=== PATIENT | female | born 1975 | race Caucasian/White ===

== ENCOUNTER 2016-11-01 13:09 | Emergency (ER) | payer OTHER ==
[~2016-11-01] VITALS: Ht 170.2 cm; Wt 68.0 kg
[~2016-11-01 13:09] MED LIST: ATIVAN0.5 MG PO; ATIVAN1 MG PO; BENTYL20 MG PO; CARAFATE1 GM PO; CYCLOBENZAPRINE10 M1 PO; LAMOTRIGINE100 M2 PO; LASIX20 M1 PO; LEVSIN0.125 M1 PO; MEDROL4 M2 PO; MINIPRESS5 MG PO; OMEPRAZOLE40 MG PO; OXYCODONE HCL5 M1 PO; PEN-VK500 MG PO; PEPCID20 MG PO; PERCOCET 10-321 EACH PO; PERCOCET 5-3251 EACH PO; PROTONIX40 M3 PO; REMERON 15MG TA15 MG PO; REMERON30 M3 PO; SOMA 350MG TAB350 MG PO; SOMA350 M1 PO; TRAMADOL HCL50 M1 PO; TRAMADOL50 MG PO; TYLENOL TAB 32325 MG PO; VICODIN 300 MG-1 TAB PO; XANAX1 MG PO; XANAX2 MG PO; ZANTAC 150MG150 MG PO
[2016-11-01 13:16] VITALS: BP 142/96
--- NOTE | 2016-11-01 13:56 | ED NECK/BACK PAIN COMPLAINT ---
History of Present Illness General Chief Complaint: Low Back Pain/Injury Stated Complaint: LOW BACK PAIN /CP Source: patient, family Exam Limitations: no limitations Vital Signs & Intake/Output Vital Signs & Intake/Output Vital Signs Date Time Temp Pulse Resp B/P B/P Pulse O2 O2 Flow FiO2 Mean Ox Delivery Rate 11/01 1316 98.4 85 20 142/96 98 Room Air Allergies Coded Allergies: ibuprofen (GI UPSET 03/03/16) meloxicam (GI UPSET 03/03/16) Reconcile Medications Alprazolam (Xanax) 2 MG TABLET 1 TAB PO TID ANXIETY (Reported) Cyclobenzaprine HCl 10 MG TABLET 1 TAB PO Q8P PAIN OR SPASM Lamotrigine 100 MG TABLET 1 TAB PO DAILY MENTAL HEALTH (Reported) Mirtazapine (Remeron) 30 MG TABLET 1 TAB PO QPM MENTAL HEALTH (Reported) Oxycodone HCl/Acetaminophen (Percocet 5-325 MG Tablet) 5 MG-325 MG TABLET 1-2 TAB PO Q6P PRN PAIN Triage Note: PT TO ED C/O LEFT SIDED C/P PAIN RADIATING TO LEFT ARM X 1 WEEK. ALSO C/O EXERBATION OF CHRONIC BACK PAIN. NO SOB OR DIFF BREATHING NOTED. EKG DONE. Triage Nurses Notes Reviewed? yes : No Patient currently breastfeeds: No HPI: Patient states that she has chronic low back pain but over the past 3 weeks it has worsened. Patient states the pain is in bilateral lower back. Patient states the pain radiates to her right posterior thigh and down to behind her left knee. Pain is constant. The pain increases with movement. The pain is aching in nature. There is no weakness or numbness. There is no incontinence of bowel or bladder. Past History Travel History Traveled to [place] past 21 day No Medical History Any Pertinent Medical History? 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 No Review of Systems Review of Systems Constitutional: Reports: no symptoms. Eyes: Reports: no symptoms. Ears, Nose, Throat, Mouth: Reports: no symptoms. Respiratory: Reports: no symptoms. Cardiovascular: Reports: no symptoms. Gastrointestinal/Abdominal: Reports: no symptoms. Musculoskeletal: Reports: see HPI, back pain. Skin: Reports: no symptoms. Neurological/Psychological: Reports: no symptoms. All Other Systems: Reviewed and Negative Physical Exam Physical Exam General Appearance: well developed/nourished, alert, awake, moderate distress Head: atraumatic, normal appearance Eyes: Bilateral: PERRL, EOMI. Ears, Nose, Throat, Mouth: hearing grossly normal, moist mucous membrane Neck: normal inspection, supple, full range of motion Respiratory: normal breath sounds, chest non-tender, no respiratory distress, lungs clear Cardiovascular: regular rate/rhythm, normal peripheral pulses Gastrointestinal: normal bowel sounds, soft, non-tender, no organomegaly Back: normal inspection, muscle spasm, no vertebral tenderness Extremities: normal range of motion Straight Leg Raising: Right: Negative. Left: Negative. Neurologic/Psych: no motor/sensory deficits, awake, alert, oriented x 3, normal gait Skin: intact, normal color, warm/dry Progress Differential Diagnosis: herniated disc, myofascial strain, sciatica, T/L spine injury Plan of Care: Orders Procedure Date/time Status EKG 11/01 1310 Active Departure Departure Disposition: HOME OR SELF CARE Condition: Stable Clinical Impression Primary Impression: Back pain Qualifiers: Back pain location: low back pain Chronicity: acute Back pain laterality: bilateral Sciatica presence: with sciatica Sciatica laterality: sciatica of left side Qualified Code: M54.42 - Lumbago with sciatica, left side Referrals: PATIENT HAS NO PRIMARY CARE DR (PCP/Family) Additional Instructions: FOLLO WUP WITH THE DOCTOR PROVIDED TAKE FLEXERIL NEEDED TAKE PERCOCET NEEDED FOR SEVERE PAIN REUTRN FOR ANY CONCERNS Departure Forms: Customer Survey General Discharge Information Prescriptions: Current Visit Scripts Cyclobenzaprine HCl 1 TAB PO Q8P #20 TAB Oxycodone HCl/Acetaminophen (Percocet 5-325 MG Tablet) 1-2 TAB PO Q6P PRN PAIN #20 TAB
[2016-11-01] MEDS ORDERED: PERCOCET 5-3251 EACH PO (14:05)
[2016-11-01] MEDS ORDERED: CYCLOBENZAPRINE10 M1 PO (14:05)
[2016-11-01] MEDS ORDERED: XANAX2 M1 PO (14:08)
[2016-12-04] MEDS ORDERED: XANAX1 M1 PO (16:45)
== END 2016-11-01 14:44 ==
LOC: ERH 13:09
DX: M54.5 Low back pain (principal); R07.9 Chest pain, unspecified
CPT/HCPCS: 93005; 93010; 96372; J1885

== ENCOUNTER 2016-11-27 17:44 | Emergency (ER) | payer OTHER ==
[~2016-11-27] VITALS: Ht 170.2 cm; Wt 77.1 kg
[~2016-11-27 17:44] MED LIST changes: +XANAX2 M1 PO
[2016-11-27 17:51] VITALS: BP 148/90
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
[2016-11-27] MEDS ORDERED: LAMICTAL100 M2 PO (20:19)
[2016-11-27] MEDS ORDERED: XANAX1 M1 PO (20:19)
[2016-12-04] MEDS ORDERED: XANAX1 M1 PO (16:45)
== END 2016-11-27 20:37 ==
LOC: ERH 17:44
DX: F41.9 Anxiety disorder, unspecified (principal); F13.20 Sedative, hypnotic or anxiolytic dependence, uncomplicated; M54.5 Low back pain; F31.9 Bipolar disorder, unspecified
CPT/HCPCS: 96372; 99281; J1885

== ENCOUNTER 2017-05-12 10:09 | Emergency (ER) | payer OTHER ==
[~2017-05-12] VITALS: Ht 170.2 cm; Wt 81.6 kg
[~2017-05-12 10:09] MED LIST changes: +KETOROLAC TROME10 M1 PO; +LAMICTAL100 M2 PO; +TYLENOL WITH C1 EACH PO; +XANAX1 M1 PO; +ZOFRAN4 M2 PO
[2017-05-12 10:26] VITALS: BP 142/74
[2017-05-12] MEDS ORDERED: CLONAZEPAM0.5 M2 PO (12:21)
[2017-05-12] MEDS ORDERED: MINIPRESS5 MG PO (12:22)
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
[2017-05-12] MEDS ORDERED: PROTONIX20 M1 PO (13:36)
== END 2017-05-12 13:45 ==
LOC: ERH 10:09
DX: S51.811A Laceration without foreign body of right forearm, initial encounter (principal); R10.13 Epigastric pain; W08.XXXA Fall from other furniture, initial encounter; Y92.9 Unspecified place or not applicable; Y93.9 Activity, unspecified
CPT/HCPCS: 81001

== ENCOUNTER 2018-02-02 12:59 | Emergency (ER) | payer OTHER ==
[~2018-02-02] VITALS: Ht 170.2 cm; Wt 79.4 kg
[~2018-02-02 12:59] MED LIST changes: +CLONAZEPAM0.5 M2 PO; +MOBIC15 M1 PO; +PROTONIX20 M1 PO; +REMERON15 M2 PO; -REMERON30 M3 PO
[2018-02-02 13:40] VITALS: BP 114/76
[2018-02-03] MEDS ORDERED: CYMBALTA60 M1 PO (11:36)
[2018-02-03] MEDS ORDERED: PEPCID20 M1 PO (11:37)
[2018-02-03] MEDS ORDERED: PROMETHAZINE12.5 M2 PO (15:52)
[2018-02-03] MEDS ORDERED: CYCLOBENZAPRINE5 M2 PO (15:52)
== END 2018-02-02 14:31 | disposition admitted as inpatient to this hospital (09) ==
LOC: ERH 12:59
DX: R11.2 Nausea with vomiting, unspecified (principal); R19.7 Diarrhea, unspecified
CPT/HCPCS: 81025

== ENCOUNTER 2018-02-03 10:51 | Emergency (ER) | payer OTHER ==
[~2018-02-03] VITALS: Ht 170.2 cm; Wt 79.4 kg
[2018-02-03] MEDS ORDERED: CYMBALTA60 M1 PO (11:36)
[2018-02-03] MEDS ORDERED: PEPCID20 M1 PO (11:37)
[2018-02-03 11:44] LABS: ABSOLUTE BASOPHIL COUNT 0 /CUMM (0.0-0.2); ABSOLUTE EOSINOPHIL COUNT 0 /CUMM (0.0-0.7); ABSOLUTE GRANULOCYTE CT 3.8 /CUMM (1.4-6.5); ABSOLUTE LYMPH COUNT 1.9 /CUMM (1.2-3.4); ABSOLUTE MONOCYTE COUNT 0.4 /CUMM (0.10-0.60); BASOPHIL % 0.5 % (0.0-2.0); EOSINOPHIL % 0.7 % (0-5); GRANULOCYTE % 61.2 % (42.2-75.2); HEMATOCRIT 40.2 % (37-47); MEAN CORPUSCULAR HGB 31.6 PG (27.0-31.0); MEAN CORPUSCULAR HGB CONC 34.7 G/DL (33.0-37.0); MEAN PLATELET VOLUME 8.8 FL (7.4-10.4); PLATELET COUNT 257 /CUMM (130-400); RED BLOOD CELL CT 4.42 /CUMM (4.20-5.40); WHITE BLOOD CELL COUNT 6.1 /CUMM (4.8-10.8)
--- NOTE | 2018-02-03 12:03 | ED GENERAL ADULT ---
History of Present Illness General Chief Complaint: Abdominal Pain/Flank Pain Stated Complaint: NAUSEA VOMITING/ABD AND BACK PAIN Source: patient, old records Exam Limitations: no limitations Vital Signs & Intake/Output Vital Signs & Intake/Output Vital Signs Date Time Temp Pulse Resp B/P B/P Pulse O2 O2 Flow FiO2 Mean Ox Delivery Rate 02/03 1542 54 16 121/76 98 Room Air 02/03 1457 98 Room Air 02/03 1402 97.8 52 18 115/75 98 Room Air 02/03 1102 98.0 93 20 134/88 96 Room Air Allergies Coded Allergies: ibuprofen (GI UPSET 12/04/16) meloxicam (GI UPSET 12/04/16) Reconcile Medications Alprazolam (Xanax) 2 MG TABLET 1 TAB PO TID ANXIETY (Reported) Clonazepam 0.5 MG TABLET 1 TAB PO QPM SLEEP (Reported) Cyclobenzaprine HCl 5 MG TABLET 1 TAB PO TIDPRN back pain Duloxetine HCl (Cymbalta) 60 MG CAPSULE.DR 1 CAP PO BID MENTAL HEALTH ( Reported) Famotidine (Pepcid) 20 MG TABLET 1 TAB PO BID GI (Reported) Lamotrigine (Lamictal) 100 MG TABLET 1 TAB PO DAILY anxiety/bipolar Mirtazapine (Remeron) 15 MG TABLET 1 TAB PO QPM SLEEP (Reported) Prazosin HCl (Minipress) 5 MG CAPSULE 2 CAP PO QPM SLEEP HELP (Reported) Promethazine HCl 12.5 MG TABLET 1 TAB PO Q6 PRN NAUSEA/VOMITING Triage Note: PT TO ED C/O N/V X 7 DAYS. ALSO C/O LOW BACK PAIN AND DIZZINESS. C/O ABD PAIN THAT COMES AND GOES. STATES LMP THE BEGINNING OF THE MONTH THAT LASTED FOR 2 DAYS. DENIES S/S. Triage Nurses Notes Reviewed? yes : No Patient currently breastfeeds: No HPI: This is a 42-year-old female history of mood disorder, chronic back pain, presenting to the emergency department with right lower quadrant pain and epigastric pain with nausea and vomiting for about 7 days. Patient states she came to the emergency department yesterday, but left because the wait was too long. She denies any fever/chills. She endorses nonbloody nonbilious vomiting for the past few days. She has been able to tolerate intermittent meals. There is no clear provoking or alleviating factors at home. She endorses loose bowel movement last night but no other diarrhea. There is no blood in her stool or change in color. She states that she had some clear/whitish discharge from her vagina recently with no pain or itching. Last menstrual period was about 2 weeks ago, and was noted to be unusual in that she only bled for 2 days. She denies any chest pain, difficulty breathing, lightheadedness, dizziness, headache. He has had no recent travel or trauma or other illness. She denies any recent antibiotic use. She denies any sick contacts. (Blanco Dillon MD) Past History Travel History Traveled to [place] past 21 day No Medical History Any Pertinent Medical History? 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 No (Blanco Dillon MD) Review of Systems Review of Systems Constitutional: Reports: no symptoms. Denies: chills, fever, malaise, weakness. EENTM: Reports: no symptoms. Respiratory: Reports: no symptoms. Cardiovascular: Reports: no symptoms. GI: Reports: see HPI, abdominal pain, nausea, changes in stool, vomiting. Genitourinary: Reports: discharge. Denies: dysuria, frequency, hematuria, hesitation, nocturia , pain, urgency. Musculoskeletal: Reports: no symptoms. Skin: Reports: no symptoms. Neurological/Psychological: Reports: no symptoms. Hematologic/Endocrine: Reports: no symptoms. Immunologic/Allergic: Reports: no symptoms. (Blanco Dillon MD) Physical Exam Physical Exam General Appearance: well developed/nourished, no apparent distress, alert, comfortable Head: atraumatic, normal appearance Eyes: Bilateral: normal appearance. Ears, Nose, Throat: normal pharynx, normal ENT inspection Neck: normal inspection, full range of motion Respiratory: normal breath sounds, chest non-tender, no respiratory distress, lungs clear Cardiovascular: regular rate/rhythm, normal peripheral pulses Gastrointestinal: normal bowel sounds, soft, non-tender Back: normal inspection, normal range of motion Extremities: normal inspection, normal capillary refill, normal range of motion, no edema Neurologic/Psych: no motor/sensory deficits, awake, alert, oriented x 3, normal gait, normal mood/affect Skin: intact, normal color Core Measures ACS in differential dx? No CVA/TIA Diagnosis: No Sepsis Present: No Sepsis Focused Exam Completed? No (Santana GONZALEZ,Blanco) Progress Differential Diagnoses I considered the following diagnoses in my evaluation of the patient: Mild concern for appendicitis given the location of pain. Lower concern for torsion of ovary given time course, patient presentation. Mild concern for or complication given that the patient is actively trying to conceive. Also considering metabolic derangement, urinary tract infection, nephrolithiasis. Some concern also for pelvic inflammatory disease, Chlamydia, gonorrhea. Most likely etiology is viral gastritis. Plan of Care: Orders Procedure Date/time Status URINE 02/03 1104 Complete URINALYSIS 02/03 1104 Complete LIPASE 02/03 1104 Complete COMPREHENSIVE METABOLIC PANEL 02/03 1104 Complete CBC WITHOUT DIFFERENTIAL 02/03 110 Complete AMYLASE 02/03 1104 Complete Laboratory Tests 02/03/18 1215: Anion Gap 8, Estimated GFR > 60, BUN/Creatinine Ratio 10.0, Glucose 93, Calcium 9.0, Total Bilirubin 0.4, AST 28, ALT 48, Alkaline Phosphatase 56, Total Protein 7.4, Albumin 4.2, Globulin 3.2, Albumin/Globulin Ratio 1.3, Amylase 58, Lipase 98 02/03/18 1134: Urinalysis LIGHT H, Urine Color YEL, Urine Clarity HAZY H, Urine pH 7.0, Ur Specific Pearson <= 1.005, Urine Protein NEG, Urine Ketones NEG, Urine Nitrite NEG, Urine Bilirubin NEG, Urine Urobilinogen 0.2, Ur Leukocyte Esterase NEG, Ur Microscopic SEDIMENT EXAMINED, Urine RBC RARE, Urine WBC RARE, Ur Epithelial Cells MANY H, Urine Bacteria FEW H, Urine Hemoglobin NEG, Urine Glucose NEG, Urine Test NEGATIVE 02/03/18 1131: CBC w Diff NO MAN DIFF REQ, RBC 4.42, MCV 91.0, MCH 31.6 H, MCHC 34.7, RDW 13.0 , MPV 8.8, Gran % 61.2, Lymphocytes % 31.3, Monocytes % 6.3, Eosinophils % 0.7, Basophils % 0.5, Absolute Granulocytes 3.8, Absolute Lymphocytes 1.9, Absolute Monocytes 0.4, Absolute Eosinophils 0, Absolute Basophils 0 Microbiology 02/03 1219 GENITAL: GC DNA Probe - CAN Cancelled: Cancelled via OE: Per Decision 02/03 1219 GENITAL: Chlamydia DNA Probe (CA) - CAN Cancelled: Cancelled via OE: Per Decision Labs, pain control, nausea control, UA, CT abdomen pelvis, pelvic exam with GC chlamydia testing, reassessment Patient unable to tolerate GI cocktail. Symptoms improved with morphine and Zofran. Urinalysis is a dirty catch but not concerning for acute infectious process at this time. Awaiting CT abdomen pelvis. Patient refuses exam. She undergoes transvaginal ultrasound which is unremarkable. Urine is unremarkable as above. Labs are reassuring. CT abdomen and pelvis is essentially benign and nonacute. Patient well-appearing on reassessment, wishes to follow-up with her primary doctor. She is discharged home with primary care follow-up and return precautions. Initial ED EKG: none (Blanco Dillon MD) Departure Departure Time of Disposition: 1544 Disposition: HOME OR SELF CARE Condition: Stable Clinical Impression Primary Impression: RLQ abdominal pain Secondary Impressions: Vomiting Referrals: Patient Has No Primary Care Dr (PCP/Family) Additional Instructions: Thank you for coming to [facility] today. We do not discover the cause of your pain, as we discussed, but we also did not see any evidence of serious, life-threatening illness. It is possible that this is all from a virus, which should get better over the next few days. Please follow-up with your primary doctor for further evaluation and return to the emergency department immediately if you develop any worsening pain or fever or vomiting or diarrhea or other concerning symptoms. Departure Forms: Customer Survey General Discharge Information Prescriptions: Current Visit Scripts Promethazine HCl 1 TAB PO Q6 PRN NAUSEA/VOMITING #12 TAB Cyclobenzaprine HCl 1 TAB PO TIDPRN #10 TAB (Blanco Dillon MD) Resident Co-Sign Statement Statement: ED Attending supervision documentation- [] I saw and evaluated the patient. I have also reviewed all the pertinent lab results and diagnostic results. I agree with the findings and the plan of care as documented in the Resident's documentation. [X] I have reviewed the ED Record and agree with the Resident's documentation. [] Additions or exceptions (if any) to the Resident's note and plan are summarized below: [] (Alec GONZALEZ,oJse Zaragoza) Critical Care Note Critical Care Note Critical Care Time: non-applicable (Santana GONZALEZ,Blanco)
--- NOTE | 2018-02-03 15:35 | CT SCAN REPORT ---
EXAMINATION: CT ABDOMEN AND PELVIS WITH CONTRAST CLINICAL INFORMATION: Right lower quadrant pain. Concern for appendicitis. COMPARISON: CT abdomen and pelvis 05/26/2014. 03/06/2012. TECHNIQUE: Multidetector volumetric imaging was performed of the abdomen and pelvis following IV administration of 95 mL of Optiray 320 intravenous contrast. Sagittal and coronal reformatted images were obtained on the technologist's workstation. DLP: 366.13 mGy-cm FINDINGS: LUNG BASES: The visualized lung bases are unremarkable. LIVER, GALLBLADDER, AND BILIARY TREE: There is diffuse low attenuation of liver parenchyma due to fatty change. There is an enhancing lesion in the left lobe of the liver measuring 2.8 x 2.8 x 3 cm. Coronal image 27, axial image 158 (3). This does not have a well-defined capsule. This is nonspecific. This was not present on the CAT scan of 2013 or 2011. This can be further assessed with dynamic MRI imaging. Right lobe of liver measures 16.8 cm superior to inferior. The gallbladder is unremarkable with no evidence of radiopaque gallstones, gallbladder wall thickening, or obvious pericholecystic inflammatory changes. PANCREAS: Unremarkable. SPLEEN: Unremarkable. ADRENAL GLANDS: Unremarkable. KIDNEYS AND URETERS: The patient has normal variant of horseshoe kidney. There is no calculus or hydronephrosis. Enhancement of the cortex is normal. BLADDER: Unremarkable. GASTROINTESTINAL TRACT: No acute abnormality of the bowel. There is no bowel obstruction. There is no bowel wall thickening or edema. There is a moderate volume of stool in the colon. The appendix is normal. The small bowel loops are unremarkable. ABDOMINAL WALL: No significant hernia is appreciated. LYMPH NODES: Normal. VASCULAR: Normal enhancement of the abdominal and pelvic vasculature. There is a normal variant of a retroaortic left renal vein. PELVIC VISCERA: The uterus is anteverted. Rim-enhancing corpus luteum cyst present in the left ovary measuring 2 cm. OSSEOUS STRUCTURES: Degenerative disc height narrowing with endplate spurring and subchondral sclerosis of bone at L4-L5. IMPRESSION: 1. No acute abnormality of the abdomen or pelvis. 2. Diffuse low attenuation of parenchymal liver due to fatty change. There is an enhancing lesion in the peripheral left lobe of liver measuring 3 cm which is nonspecific. Dynamic MRI imaging would be suggested for further assessment. 3. Normal variant of horseshoe kidney. 4. Rim-enhancing follicle, corpus luteum cyst, in the left ovary.
--- NOTE | 2018-02-03 15:40 | ULTRASOUND REPORT ---
EXAMINATION: ULTRASOUND OF THE PELVIS CLINICAL INFORMATION: Right lower quadrant pain. History of cysts. Patient refusing transvaginal exam. Presumptive diagnosis of ovarian cyst. Concern also for torsion. COMPARISON: Pelvic ultrasound dated 03/06/2012. CT scan of the abdomen and pelvis dated 02/03/2018. TECHNIQUE: Transabdominal pelvic ultrasound. Patient declined transvaginal assessment. FINDINGS: Uterus: The uterus is anteverted and normal in size, measuring 7.1 x 2.8 x 6.3 cm. There is likely little arcuate configuration of the uterus seen. The endometrial stripe thickness is normal, measuring 1.1 cm in thickness. No focal myometrial mass is seen. The cervical length is normal measuring 1.9 cm. Ovaries: The ovaries bilaterally are visualized and appear normal, with the right ovary measuring 3.5 x 1.8 x 1.9 cm (6.3 mL volume) and the left ovary measuring 3.5 x 1.9 x 3.3 cm (11.5 mL volume). Bilaterally, normal arterial and venous flow is demonstrated. Other: No adnexal mass or free fluid collection seen. IMPRESSION: 1. The ovaries bilaterally appear unremarkable with normal arterial and venous flow demonstrated. By the CT scan from earlier today, a corpus luteum type peripherally rim-enhancing cyst was seen in the left ovary. This is not appreciated on transabdominal ultrasound. 2. 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
[2018-02-03 15:42] VITALS: BP 121/76
[2018-02-03] MEDS ORDERED: PROMETHAZINE12.5 M2 PO (15:52)
[2018-02-03] MEDS ORDERED: CYCLOBENZAPRINE5 M2 PO (15:52)
== END 2018-02-03 16:13 ==
LOC: ERH 10:51
PROVIDERS: Physician Assistant Medical
DX: R10.31 Right lower quadrant pain (principal); R11.10 Vomiting, unspecified; R11.2 Nausea with vomiting, unspecified; M54.5 Low back pain; F31.9 Bipolar disorder, unspecified; F32.9 Major depressive disorder, single episode, unspecified; F17.210 Nicotine dependence, cigarettes, uncomplicated
CPT/HCPCS: 74177; 81001; 81025; 87491; 87591; 96374; 96375; J1885; J2405; J2765